=== PATIENT | male | born 1960 | race Caucasian/White ===

== ENCOUNTER 2024-02-20 11:55 | Day surgery (SDC) | payer BC, MEDICARE ==
[~2024-02-20 11:55] MED LIST: LIDOCAINE 1% (10MG/ML) FOR IV START INTRADERMA PRN
[2024-02-20 12:26] VITALS: TEMP 97.6
[2024-02-20] MEDS: IV FLUID CONTINUATION 1,000 ML IV ONE (12:26)
[2024-02-20] MEDS: LACTATED RINGERS 1,000 ML IV SCH (12:27)
[2024-02-20] MEDS ORDERED: PROPOFOL 10 MG/ML 20 ML VIAL IV ONE (12:56)
--- NOTE | 2024-02-20 13:19 | P.PCN ---
Date of Procedure: 02/20/24 Procedure(s) Performed: BRIEF HISTORY: Patient is a 63-year-old pleasant white [place] scheduled for an elective colonoscopy as a part of screening for colon cancer/positive Cologuard. PROCEDURE PERFORMED: Colonoscopy with biopsy. PREOPERATIVE DIAGNOSIS: Screening for colon cancer/positive Cologuard. IV sedation per Anesthesia. PROCEDURE: After informed consent was obtained, the patient, was brought into the endoscopy unit. IV sedation was administered by Anesthesia under continuous monitoring. Digital rectal examination was normal. Initially the Olympus CF-160 flexible video colonoscope was then inserted in the rectum, gradually advanced into the cecum without any difficulty. Careful examination was performed as the scope was gradually being withdrawn. Ileocecal valve and the appendiceal orifice were visualized and appeared normal. Prep was excellent. Mucosa of the cecum, ascending colon appeared normal. The transverse colon there was a 2 mm polyp that was removed by cold biopsy. Rest of the, transverse colon, descending colon, sigmoid colon, and rectum appeared normal.4 Retroflexion was performed in the rectum and grade 2 internal hemorrhoids were seen. The patient tolerated the procedure well. IMPRESSION: 4 mm transverse colon polyp status post cold biopsy Grade 2 internal hemorrhoids RECOMMENDATIONS: Findings of this examination were discussed with the patient as well as his family. He was advised to follow the biopsy results.. If the biopsy reveals adenoma he can have repeat colonoscopy in 5 years.
[2024-02-20 13:25] VITALS: RESP 16
[2024-02-20 13:44] VITALS: BP 130/61; PULSE 66
== END 2024-02-20 13:59 | disposition home or self-care (01) ==
LOC: ORWHC2ENDO 11:55
PROVIDERS: ATTEND Internal Medicine Gastroenterology
CPT/HCPCS: 45380; 88305